=== PATIENT | male | born 1970 | race Caucasian/White ===

== ENCOUNTER 2016-11-26 17:03 | Outpatient (CLI) | payer OTHER ==
--- NOTE | 2016-11-26 18:18 | DIAGNOSTIC IMAGING REPORT ---
PROCEDURE: XR THORACIC SPINE 3 VIEWS INDICATION: THORACIC PAIN TECHNIQUE: Three views. COMPARISON: None. FINDINGS: Osseous structures and disc spaces are normal. No evidence of an acute process or fracture. A few osteophytes in the lower thoracic spine. IMPRESSION: 1. Negative thoracic spine.
== END 2016-11-26 23:00 ==
LOC: XR SRH 17:03
DX: M54.6 Pain in thoracic spine (principal)